=== PATIENT | male | born 1935 | race American Indian/Alaskan Native ===

== ENCOUNTER 2017-12-15 09:15 | Outpatient (CLI) | payer MEDICARE ==
--- NOTE | 2017-12-15 12:04 | Fluoroscopy Report ---
Epicondyles barium enema: History: Iron deficiency anemia. Findings: Patient had difficulty retaining barium during the study and examination was performed following multiple attempts. There was no obstruction to the flow of barium and air from rectosigmoid to ileocecal region. No extrinsic or intrinsic filling defects are noted in the descending tonsils and ascending colon. Multiple scattered diverticula are noted throughout the colon. Postevacuation film was noted with any significant mucosal abnormality. Complete emptying was not achieved. Impression: Diverticulosis colon.
== END 2017-12-15 09:16 | disposition home or self-care (01) ==
LOC: FLUORO 09:15
PROVIDERS: ATTEND Internal Medicine
DX: K57.30 Diverticulosis of large intestine without perforation or abscess without bleeding (principal); D50.9 Iron deficiency anemia, unspecified
CPT/HCPCS: 74280